=== PATIENT | female | born 1940 | race Caucasian/White ===

== ENCOUNTER 2019-10-08 10:04 | Day surgery (SDC) | payer OTHER ==
[~2019-10-08 10:04] MED LIST: KLONOPIN PO; PROMETH PO; TYLENOL PO
== END 2019-10-08 17:43 | disposition home or self-care (01) ==
LOC: CIR.AMB 10:04 → EDBD 11:15 → CIR.AMB 17:43
PROVIDERS: ATTEND Colon & Rectal Surgery
DX: C20 Malignant neoplasm of rectum (principal)

== ENCOUNTER 2020-04-07 16:57 | Emergency (ER) | payer OTHER ==
[~2020-04-07] VITALS: Ht 149.9 cm; Wt 45.4 kg
[2020-04-07] MEDS ORDERED: NEURIN (17:10)
[2020-04-07] MEDS ORDERED: CLONOPIN (17:11)
[2020-04-07] MEDS ORDERED: OXICODONE (17:12)
[2020-04-07] MEDS ORDERED: PANTOPRAZOLE SO20 MG PO (23:04)
[2020-04-07] MEDS ORDERED: METRONIDAZOLE500 MG PO (23:04)
[2020-04-07] MEDS ORDERED: MORGIDOX100 MG PO (23:04)
== END 2020-04-07 22:54 | disposition home or self-care (01) ==
LOC: ER 16:57
DX: R10.2 Pelvic and perineal pain (principal); Z03.818 Encounter for observation for suspected exposure to other biological agents ruled out

== ENCOUNTER 2020-04-20 09:26 | Inpatient (IN) | payer OTHER ==
[~2020-04-20] VITALS: Ht 149.9 cm; Wt 44.5 kg
[~2020-04-20 09:26] MED LIST changes: +CLONOPIN; +METRONIDAZOLE500 MG PO; +MORGIDOX100 MG PO; +NEURIN; +OXICODONE; +PANTOPRAZOLE SO20 MG PO
[2020-04-21] MEDS ORDERED: OXYC1TAB9 (08:21)
[2020-04-21] MEDS ORDERED: CLONAZEPAM0.25 MG (08:22)
[2020-04-21] MEDS ORDERED: ABANEU-SL TABL1 EACH (08:23)
[2020-04-21] MEDS ORDERED: GABAPENTIN400 MG (08:23)
[2020-04-21] MEDS ORDERED: DULCOLAX5 MG (08:23)
[2020-04-21] MEDS ORDERED: DULOXETINE HCL30 MG (08:23)
[2020-04-21] MEDS ORDERED: DICLOFENAC POTA50 MG PO (08:24)
[2020-04-21] MEDS ORDERED: PROMETHAZINE W473 ML (08:24)
[2020-04-21] MEDS ORDERED: [UNRECOGNIZED DRUG - OTHER] (08:24)
[2020-04-21] MEDS ORDERED: TYLENOL325 MG (08:25)
== END 2020-04-24 20:30 | disposition home or self-care (01) | DRG 330 ==
LOC: ER 09:26 → O/R 12:07 → SEC-K 12:07 → O/R 04-21 11:56 → SURH 04-21 16:16 → O/R 04-21 19:33 → SURH 04-22 14:44
PROVIDERS: Colon & Rectal Surgery; ADMIT Internal Medicine Geriatric Medicine; ATTEND Internal Medicine Geriatric Medicine
PROC: 0WBN0ZX Excision of Female Perineum, Open Approach, Diagnostic (ICD-10-PCS; 2020-04-21)
PROC: 0D1N4Z4 Bypass Sigmoid Colon to Cutaneous, Percutaneous Endoscopic Approach (ICD-10-PCS; principal; 2020-04-21 13:30)
DX: C20 Malignant neoplasm of rectum (principal); L03.315 Cellulitis of perineum; C18.9 Malignant neoplasm of colon, unspecified; K60.4 Rectal fistula; K62.89 Other specified diseases of anus and rectum; R10.2 Pelvic and perineal pain; Z85.048 Personal history of other malignant neoplasm of rectum, rectosigmoid junction, and anus; Z20.822 Contact with and (suspected) exposure to COVID-19